=== PATIENT | female | born 1995 | race Caucasian/White ===

== ENCOUNTER 2024-12-26 03:20 | Emergency (ER) | payer BC, SELFPAY ==
[2024-12-26 03:21] VITALS: BP 117/90; PULSE 61; RESP 18; TEMP 36.6; O2SAT 97; BMI 32.3
--- NOTE | 2024-12-26 03:28 | EDS_ITS ---
HPI History of Present Illness Chief Complaint: Abscess Narrative Narrative: Chief complaint and HPI: Right armpit abscess. 29-year-old female with no significant past medical history who presents for evaluation of right armpit abscess. Onset of symptoms several days ago. Patient was seen at urgent care and placed on Bactrim. Patient states she has yet to take the Bactrim. She states since Friday the area has become more red, swollen, painful. Denies any fever, chills, nausea, vomiting. Not diabetic. Not an IV drug abuser. No history of MRSA. Patient states she does have a history of a buttocks abscess in the past in which he required incision and drainage. Review of systems: See HPI Medications: As listed on the chart Allergies: As listed on the chart PFSH: Per chart Vital signs: As listed on the chart. Reviewed. Physical exam: Gen: A&O x3, NAD Head: Normocephalic, atraumatic Eyes: No sclera icterus, conjunctiva clear ENT: Moist mucous membranes Neck: Trachea midline, No JVD, full range of motion CV: RRR, no murmurs, no peripheral edema Resp: Lungs CTA BL, no w/r/c Musc: Full ROM, no deformity Skin: Patient has an erythematous area that is approximately 3 x 3 cm. Area is warm and tender to palpation. Most of the area is indurated however there is a small central area of fluctuance. No active drainage. No crepitus. No bullae. No lymphatic streaking. No right breast involvement. Neuro: Alert, oriented, grossly intact, sensation intact Psych: Cooperative, appropriate mood and affect [facility] Medical History (Updated 12/26/24 @ 03:27 by Vani Souza) Ovarian cyst Allergy/AdvReac Type Severity Reaction Status Date / Time No Known Allergies Allergy Verified 12/26/24 03:29 EXAM Physical Exam Const Vital Signs: 12/26/24 03:21 Temperature 97.9 F Temperature Source Oral Pulse Rate 61 Respiratory Rate 18 Blood Pressure 117/90 H Blood Pressure Mean 99 Pulse Ox 97 Oxygen Delivery Method Room Air [facility] MDM Narrative Medical decision making narrative: 29-year-old female with no significant past medical history who presents for evaluation of right armpit abscess. See physical exam findings. Suspect abscess. Patient will require incision and drainage. I do not think any laboratory workup or imaging is needed. Patient is not having any systemic symptoms. Her vitals are stable. Incision and drainage was performed. Patient tolerated this well. Patient is currently on amoxicillin for a dental infection. He states her symptoms are improving due to this. I will place her on Keflex and Bactrim for her abscess. She is educated that she can stop the amoxicillin that she will be on Keflex. She confirmed understand the plan. Follow-up with primary care physician. Monitor for worsening signs and symptoms. She confirmed understanding the plan. Patient was educated not to shower in 24 hours. Packing needs to be removed in 24 hours. No bathtubs, hot tubs, swimming pools, lakes, guillory until fully healed. Incision and Drainage Indication: Right armpit abscess Consent: Risks, benefits, and alternatives discussed with patient and consent obtained Procedure: A timeout was performed verifying correct patient, procedure, site, and positioning. The area was prepared and draped in the usual sterile manner. The site was anesthetized with 1% lidocaine with epinephrine. A cruciate incision was made in the skin and purulent material was expressed. The abscess was explored thoroughly, and sequestered pockets were opened. The abscess pocket was irrigated. Bleeding was minimal. The patient tolerated the procedure well without complications. Packin/4 inch iodoform packing Follow-Up: Standard post-procedure care was explained and return precautions were given Impression: 1. Right armpit abscess, status post incision and drainage Discharge Plan Triage Chief Complaint: Abscess ED Provider: Harris Saldivar Dx/Rx/DC Orders Primary Care Provider: Nicole Frausto NP Referrals: Nicole Frausto NP, [employer] [Primary Care Provider] - Print Language: [place] Citizen
[2024-12-26] MEDS: Lidocaine 1% /Epi 1:100 (20ml) 20 ML Vial INFILT (03:45)
[2024-12-26] MEDS: HYDROcodone Bitartrate/Apap 5/325 Tablet PO (04:11)
[2024-12-26 04:13] VITALS: BP 115/87; PULSE 68; RESP 18; TEMP 36.6; O2SAT 97
== END 2024-12-26 04:15 | disposition home or self-care (01) ==
PROVIDERS: Emergency Provider Surgery; PCP Nurse Practitioner Primary Care; Visit Provider Surgery
DX: L02.411 Cutaneous abscess of right axilla (principal); K04.7 Periapical abscess without sinus
CPT/HCPCS: 10061; 99283; A4216